=== PATIENT | female | born 1960 | race Caucasian/White ===

== ENCOUNTER 2020-08-07 14:42 | Outpatient (CLI) | payer BC, SELFPAY ==
--- NOTE | ~2020-08-07 | MM_ITS ---
EXAMINATION: MM screening adamaris BI w jacinto HISTORY: Screening mammogram TECHNIQUE: Craniocaudal and mediolateral oblique 3-D tomosynthesis images were obtained and synthetic 2-D images were generated. CAD analysis was submitted and interpreted. COMPARISON: 06/29/2019, 08/09/2017 bilateral digital screening mammogram examinations BREAST PARENCHYMAL COMPOSITION: There are scattered areas of fibroglandular density. FINDINGS: There is an asymmetric 4 mm opacity in the anterior inner right breast on CC projection. D iagnostic right mammogram is recommended, with ultrasound if required. There is an asymmetric irregular opacity in the posterior mid left breast on MLO view. Diagnostic lef t mammogram is recommended, with ultrasound if required. IMPRESSION: 1. Bilateral mammographic asymmetries opacities 2. Bilateral diagnostic mammography is recommended, with ultrasound if required. BI-RADS Category 0: Incomplete: Needs additional imaging evaluation. Reviewed, dictated and finalized at location A. NCIAL REPORTING DIRECTOR IMPRESSION: 1. Bilateral mammographic asymmetries opacities 2. Bilateral diagnostic mammography is recommended, with ultrasound if required . BI-RADS Category 0: Incomplete: Needs additional imaging evaluation.
--- NOTE | ~2020-08-07 | DEXA_ITS ---
Bone Density Report Name: Gabriela Stark Age: 59 Sex: Female Ethnicity: White Date of : 1960 Indication: postmenopausal; height loss; Referring Provider: FANG, LISA Study: Bone densitometry was performed. Exam Date: August 07, 2020 Accession number: [id number] Bone Density: Region BMD T-score Z-score Classification AP Spine (L1-L4) 0.905 -1.3 0.0 Osteopenia Femoral Neck (Left) 0.603 -2.2 -1.0 Osteopenia Total Hip (Left) 0.818 -1.0 -0.2 Normal Total Hip Bilateral Avg 0.842 -0.8 0.0 Normal Femoral Neck (Right) 0.686 -1.5 -0.3 Osteopenia Total Hip (Right) 0.865 -0.6 0.2 Normal World Health Organization criteria for BMD impression classify patients as: Normal (T-score at or above -1.0), Osteopenia (T-score between -1.0 and -2.5), or Osteoporosis (T-score at or below -2.5). 10-year Fracture Risk(1): Major Osteoporotic Fracture 9.5% Hip Fracture 2.1% Reported Risk Factors: [place] (), Neck BMD=0.603, BMI=27.0, smoking (1) FRAX(R) Version 3.08. Fracture probability calculated for an untreated patient. Fracture probability may be lower if the patient has received treatment. Previous Exams: Region Exam Age BMD T-score BMD Change BMD Change Date g/cm2 vs Baseline vs Previous AP Spine(L1-L4) 08/07/2020 59 0.905 -1.3 -0.112(-11.0%) -0.030(-3.2%)* 08/09/2017 56 0.935 -1.0 -0.083(-8.1%)# 0.040(4.5%)* 06/25/2014 53 0.894 -1.4 -0.123(-12.1%) -0.123(-12.1%) 05/21/2011 50 1.018 -0.3 Total Hip(Left) 08/07/2020 59 0.818 -1.0 -0.041(-4.8%)# -0.030(-3.5%)* 08/09/2017 56 0.847 -0.8 -0.012(-1.4%)# 0.040(4.9%)* 06/25/2014 53 0.808 -1.1 -0.051(-6.0%)# -0.051(-6.0%)# 05/21/2011 50 0.859 -0.7 Total Hip(Right) 08/07/2020 59 0.865 -0.6 -0.021(-2.4%)# -0.025(-2.8%) 08/09/2017 56 0.889 -0.4 0.003(0.4%)# 0.060(7.3%)* 06/25/2014 53 0.829 -0.9 -0.057(-6.4%)# -0.057(-6.4%)# 05/21/2011 50 0.886 -0.5 *Denotes significance at 95% confidence level, LSC for AP Spine = 0.022 g/cm2, LSC for Total Hip = 0.027 g/cm2 Clinical Information Provided by Patient: Smokes Has used the following medications: Evista (i.e. raloxifene), Vitamin D, Calcium Patient maximum height was 66 Menopause Age: 50 Onset of menses at age 18 Number of children 0 Impression: The patient has low bone mass, based on the Left Femoral Neck T-score. The patient has an estimated ten-year risk
== END 2020-08-07 14:43 | disposition home or self-care (01) ==
LOC: ANHIMG 14:45
PROVIDERS: PCP Internal Medicine; Visit Provider Nurse Practitioner
DX: Z12.31 Encounter for screening mammogram for malignant neoplasm of breast (principal); Z78.0 Asymptomatic menopausal state; M85.89 Other specified disorders of bone density and structure, multiple sites
CPT/HCPCS: 77063; 77067; 77080

== ENCOUNTER 2020-09-29 11:45 | Outpatient (CLI) | payer BC, SELFPAY ==
--- NOTE | ~2020-09-29 | MMUS_ITS ---
EXAMINATION: MM diagnostic mammo BI, US breast LT limited HISTORY: Bilateral mammographic asymmetries reported on 08/07/2020 bilateral digital screening mammogr am TECHNIQUE: Additional 3-D tomosynthesis images of both breasts were performed and synthetic 2-D image s were generated. CAD analysis was submitted and interpreted. COMPARISON: 08/07/2020 bilateral digital screening mammogram MAMMOGRAM FINDINGS: No definite reproducible mass or architectural distortion is evident in either br east. LEFT ULTRASOUND FINDINGS:Ultrasound imaging at 2-5:00 region reveals no suspicious mass or shadowing. IMPRESSION: 1. Probable benign findings; probable asymmetric fibroglandular densities 2. 6 month diagnostic mammogram follow-up is recommended, with ultrasound if required BI-RADS category 3, probably benign findings. Reviewed, dictated and finalized at location A. OR LABEL SPECIALIST IMPRESSION: 1. Probable benign findings; probable asymmetric fibroglandular densities 2. 6 month diagnostic mammogram follow-up is recommended, with ultrasound if re quired BI-RADS category 3, probably benign findings.
== END 2020-09-29 11:46 | disposition home or self-care (01) ==
LOC: ANHIMG 11:48
PROVIDERS: Family Provider Obstetrics & Gynecology Gynecology; PCP Internal Medicine; Visit Provider Obstetrics & Gynecology Gynecology
DX: R92.8 Other abnormal and inconclusive findings on diagnostic imaging of breast (principal)
CPT/HCPCS: 76642; 77066

== ENCOUNTER 2021-04-16 12:12 | Outpatient (CLI) | payer BC, SELFPAY ==
--- NOTE | ~2021-04-16 | MM_ITS ---
EXAMINATION: MM diagnostic adamaris LT w jacinto HISTORY: Follow-up left breast asymmetry TECHNIQUE: Additional 3-D tomosynthesis images of the left breast were performed and synthetic 2-D im ages were generated. CAD analysis was submitted and interpreted. COMPARISON: Comparison to multiple prior studies sequentially, with oldest reviewed study dated 02/2016. BREAST PARENCHYMAL COMPOSITION: Breast composed of scattered areas of fibroglandular density. FINDINGS: The left breast is stable. No new masses, calcifications or architectural distortion in the left breast to suggest malignancy. No mammographic evidence for malignancy in the left breast. IMPRESSION: 1. No mammographic evidence for malignancy in the left breast. 2. Routine yearly screening mammogram and regular clinical breast examination are recommended. BI-RADS Category 1: Negative Reviewed, dictated and finalized at location A. IMPRESSION: 1. No mammographic evidence for malignancy in the left breast. 2. Routine yearly screening mammogram and regular clinical breast examination a re recommended. BI-RADS Category 1: Negative
== END 2021-04-16 12:13 | disposition home or self-care (01) ==
LOC: ANHIMG 12:17
PROVIDERS: PCP Internal Medicine; Visit Provider Obstetrics & Gynecology Gynecology
DX: R92.8 Other abnormal and inconclusive findings on diagnostic imaging of breast (principal)
CPT/HCPCS: 77061; 77065; G0279

== ENCOUNTER 2023-01-24 12:41 | Outpatient (CLI) | payer OTHER, SELFPAY ==
--- NOTE | ~2023-01-24 | MM_ITS ---
EXAMINATION: MM diagnostic adamaris BI w jacinto HISTORY: Possible palpable masses of the outer breasts. TECHNIQUE: Craniocaudal, mediolateral, and mediolateral oblique 3-D tomosynthesis images of the breas ts were performed and synthetic 2-D images were generated. CAD analysis was submitted and interpreted . COMPARISON: 04/16/2021, 09/29/2020, 08/07/2020 BREAST PARENCHYMAL COMPOSITION: There are scattered areas of fibroglandular density. FINDINGS: No suspicious mass, calcification, or architectural distortion are identified in either oscar ast to suggest malignancy. There has been no suspicious interval change. No mammographic correlate i s identified for the reported palpable lumps of the breasts question. IMPRESSION: 1. No specific mammographic correlate is identified for the possible palpable abnormalities of the br easts. Further evaluation at this time should be based on clinical assessment. Continued follow-up ph ysical examination is recommended. 2. Recommend routine screening mammography in one year. BI-RADS Category 1: Negative Reviewed, dictated and finalized at location A. IMPRESSION: 1. No specific mammographic correlate is identified for the possible palpable a bnormalities of the breasts. Further evaluation at this time should be based on clinical assessment. Continued follow-up physical examination is recommended. 2. Recommend routine screening mammography in one year. BI-RADS Category 1: Negative
== END 2023-01-24 12:42 | disposition home or self-care (01) ==
LOC: ANHIMG 12:44
PROVIDERS: PCP Internal Medicine; Visit Provider Advanced Practice Midwife
DX: N63.10 Unspecified lump in the right breast, unspecified quadrant (principal); N63.20 Unspecified lump in the left breast, unspecified quadrant
CPT/HCPCS: 77062; 77066; G0279

== ENCOUNTER 2023-03-03 01:59 | Day surgery (SDC) | payer OTHER, SELFPAY ==
[2023-02-21 14:32] VITALS: BMI 25.7
--- NOTE | 2023-02-21 14:35 | PC.NURSE ---
Report to the Outpatient Waiting Room, entrance under the green pavilion located off [facility], at time 1230 on date 03/03/23. Planned Procedure Time: 1330. Time changes happen often and if your time is changed the preop area will call you the afternoon before. - You and your visitor will be asked to self-screen and do not enter if you have any COVID symptoms. - A mask is optional within the hospital at this time. Patients may have LIGHT MEAL. Take the following medications with a SIP of water the morning of surgery: PRESCRIBED DO NOT STOP ANY OF YOUR OTHER PRESCRIPTION MEDICATIONS PRIOR TO SURGERY ?EXCEPT THE FOLLOWING Medications to discontinue per physician: N/A (LOCAL) Date to take last dose: N/A Please no make-up, nail guyanese, hairspray, perfume, deodorant, or body powder the day of surgery. No jewelry (including any body piercings) or valuables the day of surgery, leave them at home. Please take a shower or bath the night before, or the morning of, surgery with an antibacterial soap. Wear comfortable, loose fitting clothing. - Jewelry must be removed prior to entering the operating room. Rings and piercings that are not removed may be cut off. - The hospital will not accept responsibility for valuables. - Please leave all valuables, including medications, at home the day of surgery. YOU MAY DRIVE YOURSELF HOME. Follow any additional instructions given to you from your surgeon. If you or anyone in your household have experienced Covid symptoms in the past week, please notify your surgeon or the nurse liaison at the phone number below for possible testing. Telephone instructions given to PT - CAROL RADER and asked if any additional questions and then verbalized understanding. Patient advised to call surgeon office or pre surgery nurse liaison [phone] if any additional questions.
[2023-03-03 06:39] VITALS: BP 123/84; PULSE 101; RESP 20; TEMP 36.1; O2SAT 98
--- NOTE | 2023-03-03 07:28 | PM.IMHP ---
H&P: HPI History of Present Illness Date/Time: 03/03/23 07:28 Chief Complaint: SQ mass left thigh Narrative: Ms. Stark presents to the office at the request of Dr. Andrade for evaluation.? Patient reports a left posterior thigh mass that has been present for many years with gradual increase in size.? She denies history of or active infection at the site and no associated pain.? No imaging has been performed. PFSH Family History? Sibling AsthmaMother Patient's mother is in good healthFather Family history of diabetes mellitus in first degree relative Social History? Smoking status:? Current every day smoker Second hand tobacco smoke exposure:? Yes Alcohol intake:? current Lack of Transportation:? No Lack of Food:? Never True Current Housing:? I Have Housing Concerned About Future Housing:? No Difficulty Paying Gas/Electric Bills:? No Difficulty Paying for Meds:? No Currently Unemployed:? Decline to Answer Education:? Associate Degree Difficulty w/ Childcare or Family Care:? No Intake Vital Signs ? 01/29/2309:29 Height 1.68 m Height (Inches) 66 Weight 72.688 kg Weight (Lbs) 160 lbs., 4 oz. BMI 25.8 BP 122/84 Blood Pressure Location Rt brachial Position Sitting Respiration 14 Pulse 101 H Pulse Source Monitor Temp 36.4 C Temp Source Tympanic Pulse Oximetry (%) 99 Oxygen Delivery Method Room Air Visit Reasons:?Lump/Mass Allergies/Adverse Reactions No Known Allergies Allergy (Verified 01/29/23 09:28) Preferred laboratory: [facility] Pre-Planning preparation?: Yes Review of Systems Const All systems reviewed & are unremarkable except as noted in HPI and below Denies chills, Denies fever(s), Denies headache(s) and Denies weakness Eyes Reports no additional complaints, Denies loss of peripheral vision and Denies loss of vision ENT Denies vertigo, Denies dizziness, Denies headache(s) and Denies sinus pressure Card Denies syncope, Denies irregular heart rhythm, Denies claudication, Denies lightheadedness, Denies palpitations, Denies dyspnea and Denies dyspnea on exertion Resp Denies pain with cough, Denies dyspnea, Denies dyspnea on exertion and Denies wheezing GI Denies change in bowel habits and Denies dyspepsia Denies hematuria and Denies urinary incontinence Musc Denies arthralgias, Denies joint swelling and Denies muscle weakness Neuro Denies behavioral changes, Denies confusion, Denies vertigo, Denies dizziness, Denies syncope, Denies headache(s), Denies loss of vision, Denies seizure-like activity and Denies weakness Psych Denies behavioral changes, Denies confusion and Denies tactile hallucinations Endo Denies palpitations Aller/ Immun Reports no additional complaints and Denies wheezing Exam Exam Const General: No confusion Orientation/Consciousness: No confusion HENMT Head: normal to inspection Ears: hearing grossly normal bilaterally Face/Nose/Sinus: Normal external nose present and normal facial exam Eyes General: appearance normal, both eyes and all related structures Eyelids: eyelids normal Conjunctivae/Sclera: Yes conjunctivae normal Neck General: Yes normal visual inspection, Yes full ROM and Yes no neck mass and non-tender Resp Effort/Inspection: normal respiratory effort and able to speak in complete sentences Auscultation: clear to auscultation bilaterally and no wheezes Cardio Rate: Yes regular rate Rhythm: regular rhythm Heart Sounds: No Murmur heart sound present Skin Other: 2x2cm well circumscribed left posterior lateral thigh subcutaneous mass.? Nonfixed.? Small punctum suggestive of inclusion cyst.? No redness or tenderness. Neuro General: No confusion Cranial Nerves: Yes CN's II-XII intact bilaterally Speech: normal speech Psych Appearance: grossly normal Mental status: Yes mental status grossly normal and Yes awake, alert and lucid Affect: Yes normal affect Speech/Mo
[2023-03-03 07:36] VITALS: BP 164/75; PULSE 66; RESP 14; O2SAT 94
[2023-03-03 07:48] VITALS: BP 149/61; PULSE 67; RESP 16; O2SAT 96
[2023-03-03] MEDS: LIDO 1%/EPINEPHRINE 1:100,000 20 ML VIAL 10.5 ML INFILTRATE (08:00)
[2023-03-03 08:02] VITALS: BP 137/68; PULSE 68; RESP 14; O2SAT 93
[2023-03-03] MEDS: BUPivacaine HCL 0.5% 10 ML AMP 10.5 ML INFILTRATE (08:02)
[2023-03-03 08:07] VITALS: BP 160/83; PULSE 81; RESP 20
--- NOTE | 2023-03-03 08:20 | WPDHPUPDATE1 ---
History and Physical Update Update Date/Time: 03/03/23 08:20 History and Physical has been reviewed, including an updated exam of the patient. There are NO changes in the patient's condition. Risks, benefits, and alternatives have been discussed and questions answered. Patient agrees to proceed with procedure.
--- NOTE | 2023-03-03 08:20 | PM.OP ---
Procedure Note - Brief Procedure Note - Brief Date of procedure: 03/03/23 posterior lateral subcutaneous mass left thigh Surgeon: Fuad Harmon MD
--- NOTE | 2023-03-03 08:24 | PM.OP ---
Procedure Note - Brief Procedure Note - Brief Date of procedure: 03/03/23 posterior lateral subcutaneous mass left thigh Post-op diagnosis: Same Procedure performed: Excision of left thigh sebaceous cyst with 4.5cm intermediate layered wound closure Surgeon: Fuad Harmon MD Anesthesia: local Implants: None Estimated blood loss (mL): 5 Drains: No Packing: No Pathology: Yes Complications: No immediate complications Condition: Stable Disposition: Same day
--- NOTE | 2023-03-05 12:21 | P.OP_ITS ---
Procedure Note - Detailed Date of Procedure 03/03/23 Pre-op Diagnosis posterior lateral subcutaneous mass left thigh Post-op Diagnosis Same Procedure Performed Excision left thigh sebaceous cyst with 4.5cm intermediate layered wound iqra sure Surgeon Fuad Harmon MD Anesthesia Local Indications Patient is a 62-year-old female who presents with a slowly enlarging subcutaneous mass in the left posterior lateral thigh region. Clinically it appears to be consistent with a noninfected and nonruptured sebaceous cyst. She presents now for excision. Findings The mass was consistent with a benign sebaceous cyst clinically. The cyst measured 2.5x1.5x1.5cm. The length of the intermediate layered wound closure was 4.5cm. Description of Procedure After informed consent was obtained patient brought to the operating room she was placed in the right lateral decubitus position on the operating table. There is a left posterior lateral thigh region was then prepped and draped in usual sterile fashion. A time-out was then performed correctly identifying the patient as well as procedure to be performed and verifying the site marking. As this was a local anesthetic procedure no IV antibiotics were given. I then proceeded to inject 1% lidocaine mixed with 0.5% Marcaine in the subcutaneous tissues around the cyst in the posterior lateral left thigh . Once adequate anesthesia of the area I then proceeded to make a transverse elliptical incision with a scalpel. I then dissected down sharply through the dermis of the skin utilizing the scalpel and showing out the cyst wall without rupturing the cyst w all. Once I got into the deeper subcutaneous tissues I utilized electrocautery to completely excise out the cyst again without rupturing the wall. Once the mass was completely excised it measured 2.5x1.5x1.5cm. It was sent to pathology for examination. I then achieved hemostasis the wound electrocautery. It was then irrigated with sterile saline solution hemostasis was good. I then performed an intermediate layered wound closure utilizing interrupted 3-0 Vicryl sutures in multiple layers of subcutaneous tissues. the skin edges were then approximated utilizing a running subcuticular 4-0 Monocryl suture. The length of the intermediate layered wound closure was 4.5cm. Incision was then cleaned and then skin glue was applied as a final dressing. The patient tolerated the procedure well no complications. All sponges, needles, and instrument counts were correct at the end procedure. EBL was _2__cc. The patient was awakened and taken to recovery in stable and satisfactory condition. Implants None Estimated Blood Loss 2 Drains No Packing No Pathology Yes ( sebaceous cyst to pathology) Complications No immediate complications Condition Stable Disposition PACU [facility] Billing Surgery - Charge Forward: Surgery Billing
== END 2023-03-03 08:30 | disposition home or self-care (01) ==
PROVIDERS: PCP Internal Medicine; Visit Provider Surgery
PROC: (CPT 11404; principal; 2023-03-03 07:30)
DX: L72.0 Epidermal cyst (principal); F17.210 Nicotine dependence, cigarettes, uncomplicated; Z79.810 Long term (current) use of selective estrogen receptor modulators (SERMs)
CPT/HCPCS: 11404; 12032; 88304

== ENCOUNTER 2024-04-21 08:16 | Outpatient (CLI) | payer OTHER, SELFPAY ==
--- NOTE | ~2024-04-21 | MM_ITS ---
EXAMINATION: MM screening adamaris BI w jacinto HISTORY: Screening TECHNIQUE: Craniocaudal and mediolateral oblique 3-D tomosynthesis images were obtained and synthetic 2-D images were generated. CAD analysis was submitted and interpreted. COMPARISON: Comparison to multiple prior studies sequentially, with oldest reviewed study dated 08/09. BREAST PARENCHYMAL COMPOSITION: Not dense: There are scattered areas of fibroglandular density. FINDINGS: There is no evidence of suspicious mass, calcification, or architectural distortion to sugg est malignancy in either breast. There has been no suspicious interval change. IMPRESSION: 1. No mammographic evidence of malignancy. 2. Recommend routine screening mammography in one year. BI-RADS Category 1: Negative Reviewed, dictated and finalized at location B.
== END 2024-04-21 08:17 | disposition home or self-care (01) ==
LOC: ANHIMG 08:20
PROVIDERS: PCP Internal Medicine; Visit Provider Advanced Practice Midwife
DX: Z12.31 Encounter for screening mammogram for malignant neoplasm of breast (principal)
CPT/HCPCS: 77063; 77067

== ENCOUNTER 2024-05-12 08:40 | Outpatient (CLI) | payer OTHER, SELFPAY ==
[2024-05-12 09:11] LABS: Basophils Percent Auto 0.2 % (0.2-1.2); Eosinophils Absolute Auto 0.1 K/mm3 (0-0.3); Eosinophils Percent Auto 1.3 % (0-4.4); Hematocrit 45.1 % (37.0-47.0); Hemoglobin 15.2 g/dL (12.0-15.0); Immature Granulocyte Absolute 0.04 K/mm3 (0.00-0.031); Immature Granulocyte Percent A 0.5 % (0-0.5); Lymphocytes Absolute Auto 3.36 K/mm3 (0.9-3.2); Lymphocytes Percent Auto 39.8 % (18.3-44.2); Mean Corpuscular HGB Conc 33.7 g/dl (32-36); Mean Corpuscular Hemoglobin 33.1 pg (26-34); Mean Corpuscular Volume 98.3 fl (80-100); Mean Platelet Volume 10.1 fl (7.4-10.4); Monocytes Absolute Auto 0.6 K/mm3 (0.1-0.6); Monocytes Percent Auto 7.1 % (2.6-8.5); Neutrophils Absolute Auto 4.3 K/mm3 (1.3-6.7); Neutrophils Percent Auto 51.1 % (45.5-73.1); Platelet Count Result 275 k/mm3 (150-375); Red Blood Count 4.59 M/mm3 (4.2-5.4); Red Cell Distribution Width 12.5 % (11.5-14.5); White Blood Count 8.4 K/mm3 (4.5-10.0)
[2024-05-12 09:23] LABS: Alanine Aminotransferase 27 U/L (6-35); Albumin Level 4.1 g/dL (3.5-5.1); Alkaline Phosphatase 69 U/L (38-126); Anion Gap 8 mmol/L (4-12); Aspartate Amino Transferase 35 U/L (14-36); Bilirubin,Total 0.4 mg/dL (0.2-1.3); Blood Urea Nitrogen 11 mg/dL (7-17); Carbon Dioxide 24 mmol/L (22-30); Chloride 108 mmol/L (98-107); Cholesterol 226 mg/dL (0-200); Estimated Glomerular Filt Rate > 60; Glucose 103 mg/dL (65-110); HDL Direct 55 mg/dL; Sodium 140 mmol/L (137-145); Triglycerides 265 mg/dL (<150)
[2024-05-12 09:34] LABS: LDL Cholesterol Direct 104 mg/dL
[2024-05-12 10:14] LABS: Vitamin B12 > 1000.0 pg/mL (239-931)
[2024-05-12 10:30] LABS: Vitamin D 25 Hydroxy 30.5 ng/mL
== END 2024-05-12 08:41 | disposition home or self-care (01) ==
LOC: ANHLAB 08:43
PROVIDERS: PCP Internal Medicine; Visit Provider Internal Medicine
DX: Z13.29 Encounter for screening for other suspected endocrine disorder (principal); Z00.00 Encounter for general adult medical examination without abnormal findings; E78.5 Hyperlipidemia, unspecified; E55.9 Vitamin D deficiency, unspecified; E53.8 Deficiency of other specified B group vitamins
CPT/HCPCS: 36415; 80053; 80061; 82306; 82607; 84443; 85025

== ENCOUNTER 2024-08-25 13:24 | Outpatient (CLI) | payer OTHER, SELFPAY ==
--- NOTE | ~2024-08-25 | DEXA_ITS ---
Bone Density Report Name: CAROL RADER Age: 63 Sex: Female Ethnicity: White Date of : 1960 Indication: osteopenia; monitoring treatment; height loss; Referring Provider: EDD, CLAUDIO Study: Bone densitometry was performed. Exam Date: August 25, 2024 Accession number: [id number] Bone Density: Region BMD T-score Z-score Classification AP Spine(L1-L4) 0.865 -1.7 -0.1 Osteopenia Femoral Neck (Left) 0.588 -2.4 -1.0 Osteopenia Total Hip (Left) 0.753 -1.6 -0.5 Osteopenia Femoral Neck (Right) 0.628 -2.0 -0.6 Osteopenia Total Hip (Right) 0.773 -1.4 -0.3 Osteopenia Total Hip Mean 0.763 -1.5 -0.4 Osteopenia World Health Organization criteria for BMD impression classify patients as: Normal (T-score at or above -1.0), Osteopenia (T-score between -1.0 and -2.5), or Osteoporosis (T-score at or below -2.5). 10-year Fracture Risk: FRAX not reported because: Treated for osteoporosis Previous Exams: Region Exam Age BMD T-score BMD Change BMD Change Date g/cm2 vs Baseline vs Previous AP Spine (L1-L4) 08/25/2024 63 0.865 -1.7 -0.070 (-7.5%) -0.041 (-4.5%) 08/07/2020 59 0.905 -1.3 -0.030 (-3.2%) -0.030 (-3.2%) 08/09/2017 56 0.935 -1.0 Total Hip(Left) 08/25/2024 63 0.753 -1.6 -0.095 (-11.2% -0.065 (-7.9%) 08/07/2020 59 0.818 -1.0 -0.030 (-3.5%) -0.030 (-3.5%) 08/09/2017 56 0.847 -0.8 Total Hip(Right) 08/25/2024 63 0.773 -1.4 -0.117 (-13.1% -0.092 (-10.6% 08/07/2020 59 0.865 -0.6 -0.025 (-2.8%) -0.025 (-2.8%) 08/09/2017 56 0.889 -0.4 *Denotes significance at 95% confidence level, LSC for AP Spine = 0.022 g/cm2, LSC for Total Hip = 0.027 g/cm2 Clinical Information Provided by Patient: Smokes Is being treated for osteoporosis Has used the following medications: Evista (i.e. raloxifene), Vitamin D, Calcium Patient maximum height was 66 Menopause Age: 50 No regular weight bearing exercise Drinks caffeinated beverages Onset of menses at age 14 Number of children 0 Impression: The patient has low bone mass, based on the Left Femoral Neck T-score. The patient has risk factors, including: smoking. The BMD for the AP Spine (L1-L4) decreased, changing by -4.5% since the last DXA exam. The BMD for the Total Hip(Left) decreased, changing by -7.9% since the last DXA exam. The BMD for the Total Hip(Right) decreased, changing by -10.6% since the last DXA exam. Discussion: SIGNIFICANT BONE LOSS OBSERVED. Adherence to therapy (including calcium and vitamin D intake) should be assessed. If compliance is not a factor, review management and exclusion of secondary causes of bone loss. It is important to ask patients whether they are taking their medications and to encourage continued and appropriate compliance with their osteoporosis therapies to reduce fracture risk. It is also important to review their risk factors and encourage appropriate calcium and vitamin D intakes, exercise, fall prevention and other lifestyle measures. Follow-Up: Consider a repeat BMD and Vertebral Fracture Assessment (VFA) exam in 2 years or sooner if medically necessary, to reassess this patient's status. Reported by: BRYANT on 08/25/2024 2:14:00 PM. Reviewed, dictated and finalized at location ACecile REYNOSO
== END 2024-08-25 13:25 | disposition home or self-care (01) ==
PROVIDERS: PCP Internal Medicine; Visit Provider Nurse Practitioner Women's Health
DX: M85.89 Other specified disorders of bone density and structure, multiple sites (principal); Z78.0 Asymptomatic menopausal state
CPT/HCPCS: 77080